=== PATIENT | female | born 1995 | race Caucasian/White ===

== ENCOUNTER 2022-09-19 19:01 | Emergency (ER) | payer SELFPAY ==
--- NOTE | ~2022-09-19 | US_ITS ---
EXAMINATION: US OB <=14 wk fetus w TV INDICATION: left flank pain, left sided pelvic pain TECHNIQUE: Sonography of the pelvis was performed by transabdominal and transvaginal techniques. COMPARISON: None. RESULT: Uterus: Orientation: Anteverted. 8.8 x 6.1 x 4.1 cm. Myometrium: homogeneous echogenicity. Gestation: - Intrauterine gestational sac: Not seen. - Mean Sac Diameter: 0.79 cm, corresponding gestational age 5 week 4 days. - Yolk sac: Present, 0.23 cm . - Embryo: Not seen. -Subgestational hematoma: Absent . Right ovary: 2.8 x 2.0 x 3.0 cm. Normal sonographic appearance with physiologic follicles. . . Left ovary: 3.5 x 2.1 x 3.1 cm. Normal sonographic appearance with physiologic follicles. . . Pelvis free fluid: None. IMPRESSION: Intrauterine of uncertain viability, without identification of a pole. Consider beena nued clinical and sonographic follow-up. Estimated Gestational Age: 5 weeks, 4 days by crown rump length. KATHI by ultrasound 05/18/2023. Reviewed, dictated and finalized at location K. [employer] IMPRESSION: Intrauterine of uncertain viability, without identification of a feta l pole. Consider continued clinical and sonographic follow-up. Estimated Gestational Age: 5 weeks, 4 days by crown rump length. KATHI by ultras ound 05/18/2023.
[2022-09-19 19:26] VITALS: BP 111/86; PULSE 88; RESP 16; TEMP 37.3; O2SAT 100
[2022-09-19 19:56] LABS: Basophils Absolute Auto 0.1 K/mm3 (0.0-0.1); Basophils Percent Auto 0.5 % (0.2-1.2); Eosinophils Absolute Auto 0.1 K/mm3 (0-0.3); Eosinophils Percent Auto 1.3 % (0-4.4); Hematocrit 42.4 % (37.0-47.0); Hemoglobin 14.3 g/dL (12.0-15.0); Immature Granulocyte Absolute 0.05 K/mm3 (0.00-0.031); Immature Granulocyte Percent A 0.5 % (0-0.5); Lymphocytes Absolute Auto 2.99 K/mm3 (0.9-3.2); Lymphocytes Percent Auto 30.2 % (18.3-44.2); Mean Corpuscular HGB Conc 33.7 g/dl (32-36); Mean Corpuscular Hemoglobin 31.5 pg (26-34); Mean Corpuscular Volume 93.4 fl (80-100); Mean Platelet Volume 9.5 fl (7.4-10.4); Monocytes Absolute Auto 0.7 K/mm3 (0.1-0.6); Monocytes Percent Auto 6.8 % (2.6-8.5); Neutrophils Percent Auto 60.7 % (45.5-73.1); Platelet Count Result 286 k/mm3 (150-375); Red Blood Count 4.54 M/mm3 (4.2-5.4); Red Cell Distribution Width 14.8 % (11.5-14.5); White Blood Count 9.9 K/mm3 (4.5-10.0)
[2022-09-19 20:00] LABS: Appearance Urine Slightly Cloudy (Clear); Bilirubin Urine Negative (Negative); Blood Urine Negative (Negative); Color Urine Yellow (Yellow); Glucose Urine UA Negative (Negative); Ketones Urine Negative (Negative); Leukocyte Esterase Ur Negative LEU/UL (Negative); Nitrate Urine Negative (Negative); Protein Urine Negative (Negative); Specific Grav Ur 1.015 (1.001-1.035); Urobilinogen Urine 0.2 mg/dL (<2.0); pH Urine 6.5 (5.0-9.0)
[2022-09-19 20:02] LABS: Alanine Aminotransferase 16 U/L (6-35); Albumin Level 4.6 g/dL (3.5-5.1); Alkaline Phosphatase 44 U/L (38-126); Anion Gap 15 mmol/L (8-16); Aspartate Amino Transferase 22 U/L (14-36); Bilirubin,Total 0.4 mg/dL (0.2-1.3); Blood Urea Nitrogen 11 mg/dL (7-17); Calcium 8.9 mg/dL (8.4-10.2); Carbon Dioxide 25 mmol/L (22-30); Chloride 99 mmol/L (98-107); Estimated Glomerular Filt Rate > 60; Glucose 92 mg/dL (65-110); Potassium 3.7 mmol/L (3.4-5.0); Sodium 139 mmol/L (137-145)
[2022-09-19 20:13] LABS: RBC Urine 0-2 /hpf (0-2); Squamous Epithelial Cell Urine Many /hpf (Few); WBC Urine 0-3 /hpf
[2022-09-19 20:14] LABS: Add Urine Microscopic? YES
--- NOTE | 2022-09-19 22:03 | ED.PREGNANCY ---
HPI - General Chief complaint: Urogenital-Female Stated complaint: left flank pain-6wks preg Time Seen by Provider: 09/19/22 21:54 Source: patient Mode of arrival: ambulatory Limitations: no limitations History of Present Illness HPI Narrative: This is a 26 year old female that presents to the ER for left flank pain and left sided pelvic pain. Reports it is crampy in nature. Started when she woke up. Ongoing since about 4 this afternoon. Patient is about 6 weeks . She has not had an US yet or seen her OB. 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 Denies fever, dysuria, hematuria or vaginal bleeding. Related Data Allergies Allergy/AdvReac Type Severity Reaction Status Date / Time morphine Allergy Unknown Anaphylaxis Verified 09/19/22 19:30 Review of Systems Review of Systems: CONSTITUTIONAL: Denies fever GASTROINTESTINAL: Reports abdominal pain. Denies nausea, vomiting, or diarrhea. GENITOURINARY: Denies dysuria or hematuria. MUSCULOSKELETAL: Reports back pain All systems reviewed & are unremarkable except as noted in HPI and below PMFSH Past Medical History Medical History (Updated 09/20/22 @ 00:34 by Ellen Salvador PA-C) History of depression Family History Family History (Updated 12/18/18 @ 11:01 by DOCTOR UNKNOWN) Other Family history of malignant neoplasm Social History Social History Smoking status: Former smoker Smoking end date: 11/12/16 Alcohol intake: current Exam Narrative: GENERAL: Well-appearing, well-nourished, and in no acute distress. HEAD: Normocephalic, atraumatic. EYES: EOMI. CHEST: Clear to auscultation. No respiratory distress. No wheezes rales or rhonchi HEART: Regular rate and rhythm. No murmur heard. Normal peripheral pulses. ABDOMEN: Soft, nontender, nondistended, normal active bowel sounds. No CVA tenderness EXTREMITIES: Normal range of motion. No edema. SKIN: Warm, dry, no rash. NEURO: No focal deficits. Alert and oriented x3. PSYCH: Normal mood and affect Course Vital Signs Vital signs: Vital Signs Temperature 99.2 F 09/19/22 19:26 Pulse Rate 88 09/19/22 19: Respiratory Rate 16 09/19/22 19:26 Blood Pressure 111/86 09/19/22 19:26 Pulse Oximetry 100 09/19/22 19:26 Oxygen Delivery Room Air 09/19/22 19:26 Temperature 99.9 F H 09/19/22 22:08 Pulse Rate 99 09/19/22 22:08 Respiratory Rate 16 09/19/22 22:08 Blood Pressure 96/66 L 09/19/22 22:08 Pulse Oximetry 100 09/19/22 22:08 Oxygen Delivery Room Air 09/19/22 19:26 MDM - OB/Uterine Contractions MDM Narrative Medical decision making narrative: Patient presents to the ER for crampy left sided flank pain ongoing tonight. Currently about 6 weeks . She is afebrile and nontoxic appearing. Abdominal exam is benign. Her vitals are stable. CBC and metabolic panel without concerning findings. UA without evidence of infection. She has not had any vaginal bleeding. Her blood type is A +. Quantitative beta HCG is 14,275. OB US shows intrauterine gestational sac, but no pole, correlating with 5 weeks and 4 days. Ovaries are normal. No free fluid in the pelvis. Patient given IV Tylenol with relief. She was updated on case findings. Instructed to have close follow up with her OB. She was given warnings to return to the ER Lab Data Attestation: I reviewed the patient's lab results. Result diagrams: 09/19/22 19:43 09/19/22 19:43 Labs: Lab Results 09/19/22 09/19/22 09/19/22 Range/Units 19:43 19:43 19:43 WBC 9.9 (4.5-10.0) K/mm3 RBC 4.54 (4.2-5.4) M/mm3 Hgb 14.3 (12.0-15.0) g/dL Hct 42.4 (37.0-47.0) % MCV 93.4 (80-100) fl MCH 31.5 (26-34) pg MCHC 33.7 (32-36) g/dl RDW 14.8 H (11.5-14.5) % Plt Count 286 (150-375) k/mm3 MPV 9.5 (7.4-10.4) fl Immature Gran % (Auto) 0.5 (0-0.5) % Neut % (Auto) 60.7 (45.5-73.1) % Lymph % (Auto) 30.2 (18.3-44.2) % [place] % (Auto) 6.8
[2022-09-19 22:08] VITALS: BP 96/66; PULSE 99; RESP 16; TEMP 37.7; O2SAT 100
[2022-09-20 00:42] VITALS: BP 113/72; PULSE 78; RESP 18; O2SAT 98
[2022-09-20 00:52] VITALS: BP 113/78; PULSE 78; RESP 18; O2SAT 98
== END 2022-09-20 00:54 | disposition home or self-care (01) ==
PROVIDERS: Emergency Provider Emergency Medicine; PCP Family Medicine Sports Medicine
DX: R10.9 Unspecified abdominal pain (principal); O26.891 Other specified pregnancy related conditions, first trimester; Z3A.01 Less than 8 weeks gestation of pregnancy
CPT/HCPCS: 36415; 76801; 76817; 80053; 81001; 81025; 84702; 85025; 85461; 86850; 86900; 86901; 96374; 99284; J0131

== ENCOUNTER 2022-09-22 14:29 | Outpatient (CLI) | payer SELFPAY | END 2022-09-22 14:30 | disposition home or self-care (01) | PROVIDERS: PCP Family Medicine Sports Medicine; Visit Provider Physician Assistant | DX: O26.899 Other specified pregnancy related conditions, unspecified trimester (principal) | CPT/HCPCS: 36415; 84702 ==

== ENCOUNTER 2022-09-26 14:48 | Outpatient (CLI) | payer SELFPAY ==
--- NOTE | ~2022-09-26 | US_ITS ---
EXAMINATION: US OB <=14 wk fetus w TV DATE: 09/26/2022 15:53 INDICATION: First trimester with an conclusive viability TECHNIQUE: Real-time pelvic transabdominal and transvaginal ultrasound was performed. COMPARISON: 09/19/2022 FINDINGS: The uterus measures 9.7 x 4.5 x 6.2 cm. There is an intrauterine gestational sac. A yolk s ac is identified. heart motion is identified measuring 105 beats per minute (bpm) by M-mode Dop pler. The crown rump length measures 5 mm, which correlates with an estimated gestational age o f 6 weeks and 1 day(s) (+/-) 4 day(s). The right ovary measures 3.0 x 1.6 x 1.2 cm. The left ovary measures 3.3 x 2.1 x 1.9 cm. There is nor mal vascular flow in the ovaries. There is no free fluid in the pelvis. IMPRESSION: 1. Live intrauterine with an estimated gestational age of 6 weeks and 1 day(s) (+/-) 4 day( s) and an estimated delivery date of 05/21/2023. Reviewed, dictated and finalized at location F. EM CUTTER IMPRESSION: 1. Live intrauterine with an estimated gestational age of 6 weeks and 1 day(s) (+/-) 4 day(s) and an estimated delivery date of 05/21/2023.
== END 2022-09-26 14:49 | disposition home or self-care (01) ==
PROVIDERS: PCP Family Medicine Sports Medicine; Visit Provider Obstetrics & Gynecology
DX: O36.80X0 Pregnancy with inconclusive fetal viability, not applicable or unspecified (principal); Z3A.01 Less than 8 weeks gestation of pregnancy
CPT/HCPCS: 76801; 76817

== ENCOUNTER 2022-11-29 12:34 | Emergency (ER) | payer OTHER, SELFPAY ==
--- NOTE | ~2022-11-29 | US_ITS ---
EXAMINATION: US venous doppler [facility] DATE: 11/29/2022 16:01 INDICATION: Lower limb pain and swelling. TECHNIQUE: Grayscale ultrasound images without and with compression and Doppler ultrasound images of the bilateral lower extremity veins were obtained. COMPARISON: None. FINDINGS: The visualized portions of right common femoral vein, profunda (deep) femoral vein, femoral vein, pop liteal vein, peroneal veins, posterior tibial veins, and greater saphenous vein outflow are patent. The visualized portions of left common femoral vein, profunda femoral vein, femoral vein, popliteal v ein, peroneal veins, posterior tibial veins, and greater saphenous vein outflow are patent. IMPRESSION: 1. No deep venous thrombosis. Reviewed, dictated and finalized at location A. [employer] AGENT
[2022-11-29 12:37] VITALS: BP 126/74; PULSE 111; RESP 16; TEMP 37.2; O2SAT 96
--- NOTE | 2022-11-29 14:21 | ED.GENADULT ---
HPI - General Adult General Chief complaint: Unspecified Stated complaint: pain and bruising in legs-16 weeks Time Seen by Provider: 11/29/22 14:07 Source: patient Mode of arrival: other Limitations: no limitations History of Present Illness HPI narrative: Rula Issa is a 27 y/o 16 weeks who reports she is having swelling to her ankles/feet and pain to her legs and feet and it is making it hard for her to walk. She denies any trauma or injury. She reports calling her OBGYN today with this complaint and was encouarged to come to ED for evaluation. Denies nausea/vomiting/chest pain/shortness of breath/fever/chills. Related Data Home Medications Medication Instructions Recorded Confirmed albuterol sulfate 90 mcg/actuation 1 puff inhalation Q4H PRN 09/26/22 10/27/22 aerosol inhaler Shortness Of Breath Or Wheezing duloxetine 60 mg capsule,delayed 60 mg PO DAILY 09/26/22 10/27/22 release (Cymbalta) prenat.vits,enrico,[id number] 1 tablet PO DAILY 09/26/22 10/27/22 Allergies Allergy/AdvReac Type Severity Reaction Status Date / Time morphine Allergy Unknown Anaphylaxis Verified 11/29/22 14:00 Review of Systems Review of Systems: CONSTITUTIONAL: Denies fever, chills, or sweats. EYES: Denies visual changes, redness, or discharge. ENT: Denies rhinorrhea, congestion, sore throat, or otalgia. CARDIOVASCULAR: Denies chest pain, palpitations, or edema. RESPIRATORY: Denies cough or dyspnea. GASTROINTESTINAL: Denies abdominal pain, nausea, vomiting, or diarrhea. GENITOURINARY: Denies dysuria or hematuria. SKIN: Denies rash or itching. MUSCULOSKELETAL: Reports pain to lower extremities/feet and swelling to ankles NEUROLOGIC: Denies headache, numbness, dizziness, or weakness. PSYCHIATRIC: Denies anxiety or depression. [facility] Past Medical History Medical History Anxiety Asthma History of depression Surgical History Surgical History History of cholecystectomy S/P knee surgery Family History Family History Other Alcoholism Asthma Depression Family history of malignant neoplasm Heart disease Hypertension Lung cancer Thyroid disorder Social History Social History Smoking status: Former smoker Tobacco type: e-cigarettes/vaping Alcohol intake: current Substance use: never Substance use type: does not use Exam Narrative: GENERAL: Well-appearing, well-nourished, and in no acute distress. HEAD: Normocephalic, atraumatic. EYES: PERRLA and EOMI. ENT: Nares clear, no rhinorrhea or epistaxis. Mucous membranes moist. Oropharynx without tonsillar hypertrophy exudate or other lesions. NECK: Supple. No adenopathy or masses. No carotid bruits or JVD CHEST: Clear to auscultation. No respiratory distress. No wheezes rales or rhonchi HEART: Regular rate and rhythm. No murmur heard. Normal peripheral pulses. ABDOMEN: Soft, nontender, nondistended, normal active bowel sounds. EXTREMITIES: Normal range of motion. No edema. Slight swelling to ankles SKIN: Warm, dry, no rash. NEURO: No focal deficits. Alert and oriented x3. PSYCH: Normal mood and affect. Course Vital Signs Vital signs: Vital Signs Temperature 37.2 C 11/29/22 12:37 Pulse Rate 111 H 11/29/22 12:37 Respiratory Rate 16 11/29/22 12:37 Blood Pressure 126/74 11/29/22 12:37 Pulse Oximetry 96 11/29/22 12:37 Oxygen Delivery Room Air 11/29/22 12:37 Temperature 37.2 C 11/29/22 12:37 Pulse Rate 111 H 11/29/22 12:37 Respiratory Rate 16 11/29/22 12:37 Blood Pressure 126/74 11/29/22 12:37 Pulse Oximetry 96 11/29/22 12:37 Oxygen Delivery Room Air 11/29/22 12:37 Medical Decision Making MDM Narrative Medical decision making narrative: Patient reports she is about 16 wee
[2022-11-29 14:39] LABS: Basophils Percent Auto 0.4 % (0.2-1.2); Eosinophils Absolute Auto 0.1 K/mm3 (0-0.3); Eosinophils Percent Auto 1.2 % (0-4.4); Hematocrit 34.9 % (37.0-47.0); Hemoglobin 11.8 g/dL (12.0-15.0); Immature Granulocyte Absolute 0.07 K/mm3 (0.00-0.031); Immature Granulocyte Percent A 0.8 % (0-0.5); Lymphocytes Absolute Auto 1.69 K/mm3 (0.9-3.2); Lymphocytes Percent Auto 20.3 % (18.3-44.2); Mean Corpuscular HGB Conc 33.8 g/dl (32-36); Mean Corpuscular Hemoglobin 31.9 pg (26-34); Mean Corpuscular Volume 94.3 fl (80-100); Mean Platelet Volume 9.6 fl (7.4-10.4); Monocytes Absolute Auto 0.5 K/mm3 (0.1-0.6); Monocytes Percent Auto 5.5 % (2.6-8.5); Neutrophils Percent Auto 71.8 % (45.5-73.1); Platelet Count Result 250 k/mm3 (150-375); Red Cell Distribution Width 13.4 % (11.5-14.5); White Blood Count 8.3 K/mm3 (4.5-10.0)
[2022-11-29] MEDS: ACETAMINOPHEN 325 MG TABLET 650 MG PO (14:42)
[2022-11-29 14:45] LABS: Alanine Aminotransferase 17 U/L (6-35); Albumin Level 3.9 g/dL (3.5-5.1); Alkaline Phosphatase 54 U/L (38-126); Anion Gap 6 mmol/L (8-16); Aspartate Amino Transferase 21 U/L (14-36); Bilirubin,Total 0.2 mg/dL (0.2-1.3); Blood Urea Nitrogen 7 mg/dL (7-17); Calcium 8.6 mg/dL (8.4-10.2); Carbon Dioxide 26 mmol/L (22-30); Chloride 103 mmol/L (98-107); Estimated Glomerular Filt Rate > 60; Glucose 112 mg/dL (65-110); Potassium 4.2 mmol/L (3.4-5.0); Sodium 135 mmol/L (137-145)
--- NOTE | 2022-11-29 15:59 | PC.NURSE ---
return from ultrasound
== END 2022-11-29 17:30 | disposition home or self-care (01) ==
PROVIDERS: Emergency Provider Nurse Practitioner Family; PCP Family Medicine Sports Medicine
DX: O26.892 Other specified pregnancy related conditions, second trimester (principal); M79.89 Other specified soft tissue disorders; Z87.891 Personal history of nicotine dependence; Z3A.16 16 weeks gestation of pregnancy
CPT/HCPCS: 36415; 80053; 85025; 93970; 99284; A9270

== ENCOUNTER 2022-12-25 07:10 | Outpatient (CLI) | payer OTHER, SELFPAY ==
[2022-12-25 07:42] LABS: Basophils Percent Auto 0.3 % (0.2-1.2); Eosinophils Absolute Auto 0.1 K/mm3 (0-0.3); Hematocrit 30.3 % (37.0-47.0); Immature Granulocyte Absolute 0.11 K/mm3 (0.00-0.031); Immature Granulocyte Percent A 1.1 % (0-0.5); Lymphocytes Absolute Auto 1.95 K/mm3 (0.9-3.2); Mean Corpuscular Hemoglobin 31.3 pg (26-34); Mean Corpuscular Volume 94.7 fl (80-100); Monocytes Absolute Auto 0.8 K/mm3 (0.1-0.6); Monocytes Percent Auto 7.4 % (2.6-8.5); Neutrophils Absolute Auto 7.3 K/mm3 (1.3-6.7); Neutrophils Percent Auto 71.2 % (45.5-73.1); Platelet Count Result 247 k/mm3 (150-375); Red Cell Distribution Width 13.4 % (11.5-14.5); White Blood Count 10.3 K/mm3 (4.5-10.0)
[2022-12-25 07:46] LABS: Appearance Urine Clear (Clear); Bilirubin Urine Negative (Negative); Blood Urine Negative (Negative); Color Urine Yellow (Yellow); Glucose Urine UA Negative (Negative); Ketones Urine Negative (Negative); Leukocyte Esterase Ur Negative LEU/UL (NEGATIVE); Nitrate Urine Negative (Negative); Protein Urine Trace mg/dL (Negative); Specific Grav Ur 1.025 (1.001-1.035); Urobilinogen Urine 0.2 mg/dL (<2.0); pH Urine 6.5 (5.0-9.0)
[2022-12-25 07:59] LABS: Bacteria Urine Trace /hpf; Mucus Urine Rare /lpf; RBC Urine 0-2 /hpf (0-2); Squamous Epithelial Cell Urine Many /hpf (Few); WBC Urine 0-3 /hpf (0-3)
[2022-12-25 08:01] LABS: Add Urine Microscopic? YES
[2022-12-25 08:27] LABS: Vitamin D 25 Hydroxy 15.9 ng/mL
[2022-12-25 08:42] LABS: HIV 1/2 Ab P24 Ag Result Negative (Negative); Hepatitis B Surface Antigen Negative (Negative); Rubella IgG Antibody 3.3 IU/ML
[2022-12-25 08:59] LABS: Hepatitis C Virus Antibody Negative (Negative)
[2022-12-25 16:44] LABS: Rapid Plasma Reagin Non-Reactive (NonReactive)
== END 2022-12-25 07:11 | disposition home or self-care (01) ==
LOC: ANHLAB 07:12
PROVIDERS: PCP Family Medicine Sports Medicine; Visit Provider Obstetrics & Gynecology
DX: Z34.90 Encounter for supervision of normal pregnancy, unspecified, unspecified trimester (principal); Z3A.00 Weeks of gestation of pregnancy not specified
CPT/HCPCS: 36415; 81001; 82306; 83021; 84443; 85025; 86592; 86703; 86762; 86787; 86803; 86850; 86900; 86901; 87086; 87340; G0432

== ENCOUNTER 2023-01-05 10:41 | Outpatient (CLI) | payer OTHER, SELFPAY ==
--- NOTE | ~2023-01-05 | US_ITS ---
EXAMINATION: US OB /maternal detail DATE: 01/05/2023 12:02 INDICATION: Encounter for other specified screening. TECHNIQUE: Real-time ultrasound of the pelvis was performed. COMPARISON: Ultrasound 09/26/2022, 09/19/2022 FINDINGS: There is a single living fetus in variable presentation. The placenta is posterior. heart rate is 150 beats per minute (bpm). The amniotic fluid volume is subjectively normal. The following biometric data were obtained: Biparietal diameter (BPD): 4.6 cm; head circumference (HC): 17.7 cm; abdominal circumference (AC): 16 .1 cm; femur length (FL): 3.2 cm. These measurements are concordant. Estimated weight is 361 g +/- 54 g, which correlates with the 14th percentile when 05/16/23 is us ed as estimated date of delivery. As single measurements, these parameters are each equal to the following estimated gestational ages: BPD: 20 weeks 0 days. HC: 20 weeks 1 days. AC: 21 weeks 1 days. FL: 20 weeks 0 days. estimated gestational age based solely on measurements from this exam is 20 weeks 2 days +/- 1 weeks 3 days. The cerebral ventricles, cerebellum, cisterna magna, nuchal fold, and visualized portions of the spin e are normal. The heart is normal. The diaphragm, stomach, kidneys, and bladder are normal. There are two umbilical arteries to yield a 3-vessel cord. The cord insertion is normal. IMPRESSION: 1. Single living fetus in variable presentation. 2. Estimated weight is 361 g +/- 54 g, which correlates with the 14th percentile when 05/16/23 i s used as estimated date of delivery. Note that estimated date of delivery based on the ultrasound fr om 09/26/2022 would be 05/21/2023. 3. Normal anatomic survey. Reviewed, dictated and finalized at location A. CUTTER IMPRESSION: 1. Single living fetus in variable presentation. 2. Estimated weight is 361 g +/- 54 g, which correlates with the 14th pe rcentile when 05/16/23 is used as estimated date of delivery. Note that estimated date of delivery based on the ultrasound from 09/26/2022 would be 05/21/2023. 3. Normal anatomic survey.
== END 2023-01-05 10:42 | disposition home or self-care (01) ==
LOC: ANHIMG 10:45
PROVIDERS: PCP Family Medicine Sports Medicine; Visit Provider Obstetrics & Gynecology
DX: Z36.89 Encounter for other specified antenatal screening (principal); Z3A.20 20 weeks gestation of pregnancy
CPT/HCPCS: 76805

== ENCOUNTER 2023-02-21 13:22 | Outpatient (CLI) | payer OTHER, SELFPAY ==
[2023-02-21 15:08] LABS: Basophils Percent Auto 0.3 % (0.2-1.2); Eosinophils Absolute Auto 0.1 K/mm3 (0-0.3); Eosinophils Percent Auto 0.7 % (0-4.4); Hematocrit 31.5 % (37.0-47.0); Hemoglobin 10.5 g/dL (12.0-15.0); Immature Granulocyte Absolute 0.13 K/mm3 (0.00-0.031); Immature Granulocyte Percent A 1.2 % (0-0.5); Lymphocytes Percent Auto 13.9 % (18.3-44.2); Mean Corpuscular HGB Conc 33.3 g/dl (32-36); Mean Corpuscular Hemoglobin 31.3 pg (26-34); Mean Platelet Volume 10.6 fl (7.4-10.4); Monocytes Absolute Auto 0.7 K/mm3 (0.1-0.6); Monocytes Percent Auto 6.6 % (2.6-8.5); Neutrophils Absolute Auto 8.3 K/mm3 (1.3-6.7); Neutrophils Percent Auto 77.3 % (45.5-73.1); Platelet Count Result 199 k/mm3 (150-375); Red Blood Count 3.35 M/mm3 (4.2-5.4); Red Cell Distribution Width 13.4 % (11.5-14.5); White Blood Count 10.8 K/mm3 (4.5-10.0)
[2023-02-21 15:25] LABS: Glucose 1 Hour PP 50gm Dose 93 mg/dL
== END 2023-02-21 13:23 | disposition home or self-care (01) ==
PROVIDERS: PCP Family Medicine Sports Medicine; Visit Provider Obstetrics & Gynecology
DX: Z34.90 Encounter for supervision of normal pregnancy, unspecified, unspecified trimester (principal)
CPT/HCPCS: 36415; 82947; 85025

== ENCOUNTER 2023-03-15 12:31 | Outpatient (CLI) | payer OTHER, SELFPAY ==
--- NOTE | ~2023-03-15 | US_ITS ---
EXAMINATION: US OB follow up DATE: 03/15/2023 13:30 INDICATION: Encounter for screening during third trimester TECHNIQUE: Real-time ultrasound of the pelvis was performed. The interpreting radiologist was not pre sent for the study. COMPARISON: 01/05/2023 FINDINGS: There is a single living fetus in vertex presentation. The placenta is posterior fundal. heart rate is 134 beats per minute (bpm). The amniotic fluid index is 13.8 cm, which is normal (5th%-95%: 9.0-23.4 cm at 30 weeks estimated gestational age). The following biometric data were obtained: BPD: 7.6 cm -> 30 weeks 3 days Head circumference: 27.9 cm -> 30 weeks 4 days Abdominal circumference: 26.7 cm -> 30 weeks 6 days Femur length: 5.8 cm -> 30 weeks 3 days These measurements are concordant. Head circumference to abdominal circumference ratio: 1.04 (normal range 0.97-1.18). Estimated weight: 1613 g (+/-) 242 g or 3 lbs. 9 oz. (+/-) 9 oz. IMPRESSION: 1. Single living fetus in vertex presentation with heart rate of 134 bpm. 2. Normal amniotic fluid index of 13.8 cm. 3. Estimated weight is 45th percentile by Hadlock criteria when 05/21/2023 is used as the estima aureliano date of delivery (KATHI). Please correlate with clinical information or earlier ultrasounds for mos t accurate KATHI. Reviewed, dictated and finalized at location L. IMPRESSION: 1. Single living fetus in vertex presentation with heart rate of 134 bpm. 2. Normal amniotic fluid index of 13.8 cm. 3. Estimated weight is 45th percentile by Hadlock criteria when 05/21/2023 is used as the estimated date of delivery (KATHI). Please correlate with clinica l information or earlier ultrasounds for most accurate KATHI.
== END 2023-03-15 12:32 | disposition home or self-care (01) ==
PROVIDERS: PCP Family Medicine Sports Medicine; Visit Provider Registered Nurse
DX: Z36.2 Encounter for other antenatal screening follow-up (principal); Z3A.00 Weeks of gestation of pregnancy not specified
CPT/HCPCS: 76816

== ENCOUNTER 2023-04-05 09:31 | Outpatient (CLI) | payer OTHER, SELFPAY ==
[2023-04-05 10:13] LABS: Basophils Percent Auto 0.4 % (0.2-1.2); Eosinophils Absolute Auto 0.1 K/mm3 (0-0.3); Eosinophils Percent Auto 0.6 % (0-4.4); Hematocrit 33.1 % (37.0-47.0); Hemoglobin 10.8 g/dL (12.0-15.0); Immature Granulocyte Percent A 1.9 % (0-0.5); Lymphocytes Absolute Auto 1.53 K/mm3 (0.9-3.2); Lymphocytes Percent Auto 14.3 % (18.3-44.2); Mean Corpuscular HGB Conc 32.6 g/dl (32-36); Mean Corpuscular Hemoglobin 30.1 pg (26-34); Mean Corpuscular Volume 92.2 fl (80-100); Mean Platelet Volume 11.3 fl (7.4-10.4); Monocytes Absolute Auto 0.9 K/mm3 (0.1-0.6); Monocytes Percent Auto 8.2 % (2.6-8.5); Neutrophils Percent Auto 74.6 % (45.5-73.1); Platelet Count Result 211 k/mm3 (150-375); Red Blood Count 3.59 M/mm3 (4.2-5.4); Red Cell Distribution Width 14.6 % (11.5-14.5); White Blood Count 10.7 K/mm3 (4.5-10.0)
[2023-04-05 11:09] LABS: HIV 1/2 Ab P24 Ag Result Negative (Negative)
[2023-04-06 09:01] LABS: Rapid Plasma Reagin Non-Reactive (NonReactive)
== END 2023-04-05 09:32 | disposition home or self-care (01) ==
PROVIDERS: PCP Family Medicine Sports Medicine; Visit Provider Registered Nurse
DX: Z34.90 Encounter for supervision of normal pregnancy, unspecified, unspecified trimester (principal)
CPT/HCPCS: 36415; 85025; 86592; 86703; G0432

== ENCOUNTER 2023-04-13 07:24 | Outpatient (CLI) | payer OTHER, SELFPAY ==
[2023-04-13] VITALS (7 sets, daily range): BP systolic 112–124; BP diastolic 73–81; PULSE 80–119
[2023-04-13 08:31] LABS: Basophils Percent Auto 0.3 % (0.2-1.2); Eosinophils Percent Auto 0.5 % (0-4.4); Hematocrit 31.1 % (37.0-47.0); Hemoglobin 10.3 g/dL (12.0-15.0); Immature Granulocyte Absolute 0.11 K/mm3 (0.00-0.031); Immature Granulocyte Percent A 1.3 % (0-0.5); Lymphocytes Absolute Auto 1.49 K/mm3 (0.9-3.2); Lymphocytes Percent Auto 17.2 % (18.3-44.2); Mean Corpuscular HGB Conc 33.1 g/dl (32-36); Mean Corpuscular Hemoglobin 30.4 pg (26-34); Mean Corpuscular Volume 91.7 fl (80-100); Mean Platelet Volume 11.5 fl (7.4-10.4); Monocytes Absolute Auto 0.7 K/mm3 (0.1-0.6); Monocytes Percent Auto 8.6 % (2.6-8.5); Neutrophils Absolute Auto 6.2 K/mm3 (1.3-6.7); Neutrophils Percent Auto 72.1 % (45.5-73.1); Platelet Count Result 207 k/mm3 (150-375); Red Blood Count 3.39 M/mm3 (4.2-5.4); Red Cell Distribution Width 14.6 % (11.5-14.5); White Blood Count 8.7 K/mm3 (4.5-10.0)
[2023-04-13 08:46] LABS: Alanine Aminotransferase 21 U/L (6-35); Albumin Level 3.5 g/dL (3.5-5.1); Alkaline Phosphatase 146 U/L (38-126); Anion Gap 6 mmol/L (8-16); Aspartate Amino Transferase 26 U/L (14-36); Bilirubin,Total 0.3 mg/dL (0.2-1.3); Blood Urea Nitrogen 7 mg/dL (7-17); Calcium 8.3 mg/dL (8.4-10.2); Carbon Dioxide 24 mmol/L (22-30); Chloride 105 mmol/L (98-107); Estimated Glomerular Filt Rate > 60; Glucose 88 mg/dL (65-110); Potassium 4.2 mmol/L (3.4-5.0); Sodium 135 mmol/L (137-145); Uric Acid 3.1 mg/dL (2.5-7.5)
[2023-04-13 09:58] LABS: Total Protein Urine Random 16 mg/dL
[2023-04-13 10:43] LABS: Appearance Urine Turbid (Clear); Bacteria Urine 4+ /hpf; Bilirubin Urine Negative (Negative); Blood Urine Negative (Negative); Glucose Urine UA Negative (Negative); Ketones Urine Negative (Negative); Leukocyte Esterase Ur Negative LEU/UL (NEGATIVE); Need Manual Microscopic Reviewed; Nitrate Urine Negative (Negative); Non Pathogenic Casts 0-2; Protein Urine 1+ mg/dL (Negative); RBC Urine 0-2 /hpf (0-2); Specific Grav Ur 1.027 (1.001-1.035); Squamous Epithelial Cell Urine Many /hpf (Few); WBC Urine 51-100 /hpf (0-3); pH Urine 6.5 (5.0-9.0)
[2023-04-13 10:49] LABS: Color Urine Yellow (Yellow)
[2023-04-13 10:50] LABS: Add Urine Microscopic? YES
--- NOTE | 2023-04-13 11:06 | PC.NURSE ---
Addendum entered by Della Lui RN 04/13/23 11:07: 1010 Original Note: Dr Huitron notified of patient c/o, BP and lab results. Ok to dc home with 24 hour urine.
== END 2023-04-13 10:21 | disposition home or self-care (01) ==
LOC: ANHOBOP 07:28 → ANHOBPP 07:31
PROVIDERS: PCP Family Medicine Sports Medicine; Visit Provider Obstetrics & Gynecology
DX: R42 Dizziness and giddiness (principal); O13.9 Gestational [pregnancy-induced] hypertension without significant proteinuria, unspecified trimester; Z3A.00 Weeks of gestation of pregnancy not specified
CPT/HCPCS: 36415; 59025; 80053; 81001; 82570; 84156; 84550; 85025; 87086; 99199

== ENCOUNTER 2023-04-14 12:59 | Outpatient (NON) | payer OTHER, SELFPAY ==
[2023-04-14 12:58] VITALS: BMI 30.1
[2023-04-14 13:19] LABS: Collection Time Urine 24 HOURS
[2023-04-14 13:29] LABS: Total Volume 24 Hour Urine 1300 ml
[2023-04-14 13:30] LABS: Total Protein Urine Random 12 mg/dL
[2023-04-14 13:30] LABS: Patient Weight 149 Lbs
[2023-04-14 13:35] LABS: Total Protein Urine 24 Hr 156 mg/24hr (28-141); Total Volume 24 Hour Urine 1300 ml
[2023-04-14 13:50] LABS: Creatinine Clearance Urine 275.8 ml/min (75-125); Creatinine Urine 143.2 mg/dL
== END 2023-04-14 13:00 | disposition home or self-care (01) ==
LOC: ANHOBOP 13:00
PROVIDERS: Obstetrics & Gynecology Gynecology; PCP Family Medicine Sports Medicine; Visit Provider Obstetrics & Gynecology
DX: Z34.90 Encounter for supervision of normal pregnancy, unspecified, unspecified trimester (principal); Z3A.00 Weeks of gestation of pregnancy not specified
CPT/HCPCS: 81050; 82575; 84156

== ENCOUNTER 2023-04-17 10:12 | Observation (INO) | payer OTHER, SELFPAY ==
--- NOTE | ~2023-04-17 | US_ITS ---
EXAMINATION: US OB limited DATE: 04/17/2023 12:37 INDICATION: Abdominal pain. Third trimester. TECHNIQUE: Real-time ultrasound of the pelvis was performed. COMPARISON: None. FINDINGS: There is a single fetus in vertex presentation. The placenta is fundal. heart rate is 153 beat s per minute (bpm). The amniotic fluid volume is subjectively normal. The deepest vertical pocket is 6.8 cm. IMPRESSION: 1. Single living fetus in vertex presentation. Reviewed, dictated and finalized at location A.
--- NOTE | ~2023-04-17 | US_ITS ---
Limited Abdominal Sonogram: Real-time sonographic imaging of the right upper quadrant was performed. Clinical History: Abdominal pain Findings: The liver appears normal with no evidence of mass lesion or bile duct dilatation. Main por mohan vein demonstrates normal direction of flow. The gallbladder is not visualized. The common bile du ct measures 5 mm. The pancreas, aorta, and IVC are obscured by bowel gas shadowing. Gravid uterus noted. Appendix not visualized the right lower quadrant. Impression: Gravid uterus noted. Gallbladder it is not seen. Correlate for prior cholecystectomy. Pancreas, aorta, and IVC are obscure d by bowel gas shadowing.. Appendix not visualized in the right lower quadrant. Reviewed, dictated and finalized at location . Impression: Gravid uterus noted. Gallbladder it is not seen. Correlate for prior cholecystectomy. Pancreas, aort a, and IVC are obscured by bowel gas shadowing.. Appendix not visualized in the right lower quadrant.
--- NOTE | 2023-04-17 10:12 | OBADM ---
This patient, Rula Issa, admitted to the OB room OB Post 113 for observation. Patient/family oriented to hospital policies and general routines including ID bracelet, bed and alarms, visiting hours, pain management, procedures, bathroom and other care routines, personal items, smoking policy, room service/diet, and visiting hours. Patient/Family are encouraged to report perceived risks to care and to ask questions if they do not understand what they are told or what they should do.
[2023-04-17 10:41] VITALS: BP 119/75; PULSE 79
[2023-04-17] MEDS: NIFEdipine 10 MG CAPSULE PO ×2 (11:45→13:36)
[2023-04-17 11:57] VITALS: BMI 30.9
[2023-04-17 12:03] LABS: Appearance Urine Cloudy (Clear); Bacteria Urine 1+ /hpf; Bilirubin Urine Negative (Negative); Blood Urine Negative (Negative); Color Urine Yellow (Yellow); Glucose Urine UA Negative (Negative); Ketones Urine Negative (Negative); Leukocyte Esterase Ur 1+ LEU/UL (NEGATIVE); Nitrate Urine Negative (Negative); Non Pathogenic Casts 0-2; Protein Urine Trace mg/dL (Negative); RBC Urine 0-2 /hpf (0-2); Specific Grav Ur 1.021 (1.001-1.035); Squamous Epithelial Cell Urine Many /hpf (Few); Urobilinogen Urine 0.2 mg/dL (<2.0)
[2023-04-17 12:09] LABS: Add Urine Microscopic? YES
[2023-04-17 13:20] VITALS: TEMP 36.7
--- NOTE | 2023-05-11 09:53 | P.PNOB_ITS ---
OB - Triage/Final Diagnosis Visit Information Comments/Additional reasons for admission: I have assessed the risk for this patient, Rula Issa, and determined that she would benefit from observation care. Evaluation Laboratory results: Laboratory Tests 04/17/23 11:47 Urine Color Yellow Urine Appearance Cloudy H Urine pH 6.0 Ur Specific [place] 1.021 Urine Protein Trace Urine Glucose (UA) Negative Urine Ketones Negative Ur Blood (Man) Negative Urine Nitrate Negative Urine Bilirubin Negative Urine Urobilinogen 0.2 Ur Leukocyte Esterase 1+ H Urine RBC 0-2 Urine WBC 11-20 H Ur Squamous Epith Cells Many H Urine Bacteria 1+ H Urine Casts 0-2 Final Diagnosis (1) Threatened labor: Code(s): O47.9 - False labor, unspecified Status: Acute
== END 2023-04-17 15:10 | disposition home or self-care (01) ==
PROVIDERS: Admitting Provider Obstetrics & Gynecology; PCP Family Medicine Sports Medicine; Visit Provider Obstetrics & Gynecology
DX: O47.03 False labor before 37 completed weeks of gestation, third trimester (principal); O26.893 Other specified pregnancy related conditions, third trimester; R10.9 Unspecified abdominal pain; Z3A.35 35 weeks gestation of pregnancy
CPT/HCPCS: 76705; 76815; 81001; 87086; A9270; G0378; G0379

== ENCOUNTER 2023-04-26 23:32 | Observation (INO) | payer OTHER, SELFPAY ==
[2023-04-26 23:45] VITALS: BP 123/72; PULSE 85
[2023-04-27] VITALS (8 sets, daily range): BP systolic 111–130; BP diastolic 73–89; PULSE 73–104
--- NOTE | 2023-04-27 | OBADM ---
This patient, Rula Issa, admitted to the OB room Labor/Delivery/Recovery 105 for observation. Patient/family oriented to hospital policies and general routines including ID bracelet, bed and alarms, visiting hours, pain management, procedures, bathroom and other care routines, personal items, smoking policy, room service/diet, and visiting hours. Patient/Family are encouraged to report perceived risks to care and to ask questions if they do not understand what they are told or what they should do.
--- NOTE | 2023-04-30 17:18 | PM.OBTRLD ---
OB - Triage/Final Diagnosis Visit Information Date of evaluation: 04/27/23 Reason for evaluation: threatened labor Comments/Additional reasons for admission: I have assessed the risk for this patient, Rula Issa, and determined that she would benefit from observation care.
== END 2023-04-27 02:20 | disposition home or self-care (01) ==
PROVIDERS: Admitting Provider Student in an Organized Health Care Education/Training Program; PCP Family Medicine Sports Medicine; Visit Provider Student in an Organized Health Care Education/Training Program
DX: O47.1 False labor at or after 37 completed weeks of gestation (principal); Z3A.37 37 weeks gestation of pregnancy
CPT/HCPCS: G0378; G0379

== ENCOUNTER 2023-05-01 09:03 | Outpatient (CLI) | payer OTHER, SELFPAY ==
[2023-05-01 09:42] VITALS: BP 115/81; PULSE 81
== END 2023-05-01 09:48 | disposition home or self-care (01) ==
LOC: ANHOBOP 09:40 → ANHLDR 09:44
PROVIDERS: PCP Family Medicine Sports Medicine; Visit Provider Obstetrics & Gynecology
DX: O42.90 Premature rupture of membranes, unspecified as to length of time between rupture and onset of labor, unspecified weeks of gestation (principal); Z3A.00 Weeks of gestation of pregnancy not specified
CPT/HCPCS: 59025; 84112; 99199

== ENCOUNTER 2023-05-06 08:58 | Observation (INO) | payer OTHER, SELFPAY ==
[2023-05-06] VITALS (10 sets, daily range): BP systolic 115–148; BP diastolic 65–95; PULSE 89–118; BMI 32.0
--- NOTE | 2023-05-06 11:32 | OBADM ---
This patient, Rula Issa, admitted to the OB room Labor/Delivery/Recovery 106 for observation. Patient/family oriented to hospital policies and general routines including ID bracelet, bed and alarms, visiting hours, pain management, procedures, bathroom and other care routines, personal items, smoking policy, room service/diet, and visiting hours. Patient/Family are encouraged to report perceived risks to care and to ask questions if they do not understand what they are told or what they should do.
--- NOTE | 2023-05-06 11:49 | PC.NURSE ---
1149: Patient discharged home with instructions to drink plenty of fluids, do kick counts, and return to the hospital if she is leaking fluid, cele 3-5 min apart with increasing intensity, and or with any other concerns.
--- NOTE | 2023-05-10 07:31 | PM.OBTRLD ---
OB - Triage/Final Diagnosis Visit Information Reason for evaluation: threatened labor Comments/Additional reasons for admission: I have assessed the risk for this patient, Rula Issa, and determined that she would benefit from observation care.
== END 2023-05-06 11:50 | disposition home or self-care (01) ==
PROVIDERS: Admitting Provider Obstetrics & Gynecology; PCP Family Medicine Sports Medicine; Visit Provider Obstetrics & Gynecology
DX: O47.1 False labor at or after 37 completed weeks of gestation (principal); Z3A.38 38 weeks gestation of pregnancy
CPT/HCPCS: 59025; G0378; G0379

== ENCOUNTER 2023-05-08 09:26 | Inpatient (IN) | payer OTHER, SELFPAY ==
[2023-05-08] VITALS (158 sets, daily range): BP systolic 103–152; BP diastolic 54–132; PULSE 62–122; TEMP 36.6–37.5; O2SAT 92–100; BMI 32.7
[2023-05-08 11:14] LABS: Basophils Percent Auto 0.4 % (0.2-1.2); Eosinophils Percent Auto 0.2 % (0-4.4); Hematocrit 32.2 % (37.0-47.0); Hemoglobin 10.3 g/dL (12.0-15.0); Immature Granulocyte Absolute 0.07 K/mm3 (0.00-0.031); Immature Granulocyte Percent A 0.8 % (0-0.5); Lymphocytes Percent Auto 13.2 % (18.3-44.2); Mean Corpuscular Volume 90.7 fl (80-100); Monocytes Absolute Auto 0.5 K/mm3 (0.1-0.6); Monocytes Percent Auto 5.5 % (2.6-8.5); Neutrophils Absolute Auto 6.7 K/mm3 (1.3-6.7); Neutrophils Percent Auto 79.9 % (45.5-73.1); Platelet Count Result 187 k/mm3 (150-375); Red Blood Count 3.55 M/mm3 (4.2-5.4); Red Cell Distribution Width 16.4 % (11.5-14.5); White Blood Count 8.4 K/mm3 (4.5-10.0)
[2023-05-08 11:23] LABS: Alanine Aminotransferase 18 U/L (6-35); Albumin Level 3.6 g/dL (3.5-5.1); Alkaline Phosphatase 213 U/L (38-126); Anion Gap 4 mmol/L (8-16); Aspartate Amino Transferase 28 U/L (14-36); Bilirubin,Total 0.4 mg/dL (0.2-1.3); Blood Urea Nitrogen 11 mg/dL (7-17); Calcium 8.5 mg/dL (8.4-10.2); Carbon Dioxide 25 mmol/L (22-30); Chloride 105 mmol/L (98-107); Estimated Glomerular Filt Rate > 60; Glucose 86 mg/dL (65-110); Sodium 134 mmol/L (137-145)
[2023-05-08 11:26] LABS: Uric Acid 5.4 mg/dL (2.5-7.5)
--- NOTE | 2023-05-08 11:35 | PC.NURSE ---
1117- Introductions were made and mother shared how she would like to feed her baby with . Encouraged mother to place [id number] until the first feeding if is stable and to wait on the weight to help stabilize, reduce stress, and improve latching by allowing infant time to explore parent's chest using instincts. Education was shared on how to protect her milk supply with latching infant and/or using hand expression to remove milk if infant doesn't latch in the first hour, then finger feed colostrum to the to preserve breast focus. Demonstration given on how to hand express using tool. Resources provided with educational trifold for bonding and feeding infant. Patient voiced understanding of information and to call if there is a request for assistance.
--- NOTE | 2023-05-08 11:48 | LDADM ---
This patient, Rula Issa, was admitted to Labor/Delivery/Recovery 106 on 05/08/23 at 09:26. Plans for labor, pain management and were discussed with patient. Patient/family oriented to hospital policies and general routines including ID bracelet, bed and alarms, visiting hours, pain management, procedures, bathroom and other care routines, personal items, smoking policy, room service/diet and guest tray routines, infant security routines, and visiting hours. Patient/Family are encouraged to report perceived risks to care and to ask questions if they do not understand what they are told or what they should do. See OBIX for further documentation.
[2023-05-08] MEDS: LACTATED RINGERS 1,000 ML 125 ML IV CONT ×3 (12:07→22:43)
[2023-05-08] MEDS: OXYTOCIN 30 UNITS/NS 500 ML 30 UNITS/500 ML BAG IV CONT (12:07)
--- NOTE | 2023-05-08 13:03 | PM.IMHP ---
H&P: HPI History of Present Illness Date/Time: 05/08/23 13:03 Chief Complaint: Questionable leaking and decreased baseline heart rate Narrative: She is a G1 at 38 6/7 weeks by last menstrual. Consistent with a 6 week ultrasound with an EDC of by last menstrual period. She complained of contractions frequent since yesterday. Exam in office fht 115-120. She felt a ? pop no leaking at time of cervical exam. She was sent down for a rupture check and also due to decrease in the baseline heart rate. Amnisure pos on L and D, irregular contraction. course uncomplicated. She has a history depression it is stable on medications she has not had any issues during . She has had hip pain which did improve with adjusting her activities. Labs reviewed GBS negative. Review of Systems Review of Systems: All systems reviewed & are unremarkable except as noted in HPI and below Constitutional: Constitutional: Reports no additional constitutional complaints and Denies headache(s) Eyes: Eyes: Denies spots in vision ENT: Reports system reviewed and no additional complaints, except as documented and Denies headache(s) Cardiovascular: Cardiovascular: Denies chest pain and Denies dyspnea Respiratory: Respiratory: Denies dyspnea Gastrointestinal: Gastrointestinal: Reports no additional gastrointestinal complaints Genitourinary: Genitourinary: Reports amenorrhea Musculoskeletal: Musculoskeletal: Reports no additional musculoskeletal complaints Integumentary/Breasts: Skin/Breast: Denies breast mass and Denies rash Neurologic: Denies headache(s) Psychiatric: Psychiatric: Reports no additional psychiatric complaints PMFSH Past Medical History Medical History Anxiety Asthma History of depression Surgical History Surgical History History of cholecystectomy S/P knee surgery Family History Family History Mother Family history of malignant neoplasm Alcoholism Depression Lung cancer Asthma Grandparent Heart disease Chronic obstructive pulmonary disease Thyroid disorder Lung cancer Grandparent Heart disease Chronic obstructive pulmonary disease Hypertension Social History Social History Smoking status: Former smoker Tobacco type: e-cigarettes/vaping Smoking end date: 07/13/22 Alcohol intake: former Alcohol use details: Not since Substance use: never Substance use type: does not use Lack of Transportation: No Lack of Food: Never True Current Housing: I Have Housing Concerned About Future Housing: No Difficulty Paying Gas/Electric Bills: No Difficulty Paying for Meds: No Currently Unemployed: No Education: Associate Degree Difficulty w/ Childcare or Family Care: No Living arrangements: with family Occupation/Education: occupation Gender identity (if verbalized by the patient): Female Sexual Orientation (if Verbalized by the Patient): Straight or Heterosexual Spiritual care concerns: No Meds Home Medications and Allergies Home Medications Medication Instructions Recorded Confirmed Type albuterol sulfate 90 mcg/actuation 1 puff inhalation Q4H PRN 09/26/22 05/08/23 History aerosol inhaler Shortness Of Breath Or Wheezing duloxetine 60 mg capsule,delayed 60 mg PO DAILY 09/26/22 05/08/23 History release (Cymbalta) pop.stocking,knee,reg,smal #2 ea 11/29/22 04/16/23 Rx ferrous sulfate 325 mg (65 mg 325 mg PO DAILY 05/03/23 05/03/23 History iron) tablet prenat.vits,enrico,jax-boky-asefc 1 tablet DAILY 05/03/23 05/03/23 History Allergies Allergy/AdvReac Type Severity Reaction Status Date / Time morphine Allergy Unknown Anaphylaxis Verified 05/08/23 08:39 Vital Signs Vital Signs - 24 hr 05/08/23
--- NOTE | 2023-05-08 13:05 | PM.OBPNLAB ---
Pain Control Date/time seen: 05/08/23 13:05 Comments: fht 130 cat 1, cervix 1.5/70/-2, irregular contractions, forebag AROM light meconium, continue Pitocin.
[2023-05-08 13:25] LABS: Rapid Plasma Reagin Non-Reactive (NonReactive)
--- NOTE | 2023-05-08 14:04 | WPDANESEPP ---
Anes - Eval Pre Procedure Procedure: labor pain management Date/Time: 05/08/23 14:04 Surgeon: Yung Preop Diagnosis: Pain during labor Pre Op Diagnosis: Leaking Patient Data Age: 27 Gender: F Height: 1.5 m Weight: 73.5 kg Last Vital Signs Pulse 88 05/08/23 14:00 BP 103/74 05/08/23 14:00 O2 Del Method Room Air 05/08/23 11:47 Allergies Allergy/AdvReac Type Severity Reaction Status Date / Time morphine Allergy Unknown Anaphylaxis Verified 05/08/23 08:39 Home Medications Medication Instructions Recorded Confirmed Type albuterol sulfate 90 mcg/actuation 1 puff inhalation Q4H PRN 09/26/22 05/08/23 History aerosol inhaler Shortness Of Breath Or Wheezing duloxetine 60 mg capsule,delayed 60 mg PO DAILY 09/26/22 05/08/23 History release (Cymbalta) pop.stocking,knee,reg,smal #2 ea 11/29/22 04/16/23 Rx ferrous sulfate 325 mg (65 mg 325 mg PO DAILY 05/03/23 05/03/23 History iron) tablet prenat.vits,enrico,tob-dcxl-epgry 1 tablet DAILY 05/03/23 05/03/23 History Laboratory Tests 05/08/23 10:54 WBC 8.4 K/mm3 (4.5-10.0) RBC 3.55 L M/mm3 (4.2-5.4) Hgb 10.3 L g/dL (12.0-15.0) Hct 32.2 L % (37.0-47.0) MCV 90.7 fl (80-100) MCH 29.0 pg (26-34) MCHC 32.0 g/dl (32-36) RDW 16.4 H % (11.5-14.5) Plt Count 187 k/mm3 (150-375) MPV 13.0 H fl (7.4-10.4) Immature Gran % (Auto) 0.8 H % (0-0.5) Neut % (Auto) 79.9 H % (45.5-73.1) Lymph % (Auto) 13.2 L % (18.3-44.2) [place] % (Auto) 5.5 % (2.6-8.5) Eos % (Auto) 0.2 % (0-4.4) Baso % (Auto) 0.4 % (0.2-1.2) Lymph # (Auto) 1.10 K/mm3 (0.9-3.2) [place] # (Auto) 0.5 K/mm3 (0.1-0.6) Eos # (Auto) 0.0 K/mm3 (0-0.3) Baso # (Auto) 0.0 K/mm3 (0.0-0.1) Abs Immat Gran (auto) 0.07 H K/mm3 (0.00-0.031) Absolute Neuts (auto) 6.7 K/mm3 (1.3-6.7) Absolute Nucleated RBC 0.0 K/mm3 (0.0-0.012) Nucleated RBC % 0.0 % (0.0-0.2) Sodium 134 L mmol/L (137-145) Potassium 4.0 mmol/L (3.4-5.0) Chloride 105 mmol/L (98-107) Carbon Dioxide 25 mmol/L (22-30) Anion Gap 4 L mmol/L (8-16) BUN 11 mg/dL (7-17) Creatinine 0.70 mg/dL (0.7-1.0) Estim Creat Clear Calc Not Reportable Estimated GFR > 60 (59 - ) Glucose 86 mg/dL (65-110) Uric Acid 5.4 mg/dL (2.5-7.5) Calcium 8.5 mg/dL (8.4-10.2) Total Bilirubin 0.4 mg/dL (0.2-1.3) AST 28 U/L (14-36) ALT 18 U/L (6-35) Alkaline Phosphatase 213 H U/L (38-126) Total Protein 7.0 g/dL (6.3-8.2) Albumin 3.6 g/dL (3.5-5.1) RPR Non-reactive (NonReactive) Blood Type A Positive Antibody Screen Negative Patient hx anesthesia problems: none Family hx anesthesia problems: none Results Review: All pre-operative results and documents have been reviewed as part of the pre-operative evaluation. [facility] Past Medical History Medical History Anxiety Asthma History of depression Surgical History Surgical History History of cholecystectomy S/P knee surgery Family History Family History Mother Family history of malignant neoplasm Alcoholism Depression Lung cancer Asthma Grandparent Heart disease Chronic obstructive pulmonary disease Thyroid disorder Lung cancer Grandparent Heart disease Chronic obstructive pulmonary disease Hypertension Social History Social History Smoking status: Former smoker Tobacco type: e-cigarettes/vaping Smoking end date: 07/13/22 Alcohol intake: former Alcohol use details: Not since Substance use: never Substance use type: does not use Lack of Transportation: No Lack of Food: Never True
[2023-05-08] MEDS: ACETAMINOPHEN 500 MG TABLET 1000 MG PO (22:43)
[2023-05-08] MEDS: DULoxetine HCL 60 MG CAPSULE.DR PO (23:00)
[2023-05-09] VITALS (81 sets, daily range): BP systolic 84–164; BP diastolic 40–104; PULSE 71–130; RESP 16–18; TEMP 36.6–37.1; O2SAT 91–99
[2023-05-09] MEDS: ceFAZolin 2 GM/D5W 50 ML 2 GM/50 ML BAG IVPB (01:31)
--- NOTE | 2023-05-09 01:33 | PM.OBPNLAB ---
Pain Control Date/time seen: 05/09/23 01:33 Assessment and Plan Comments: tracing with bradycardia episode. This was the second prolonged thomas episode. Cervix was unchanged and swollen. She was recommended for section for intolerance to labor and failure to progress. She has been informed of risk/benefit of section and risk of continuing Pitocin. She agrees to section.
[2023-05-09] MEDS: AZITHROMYCIN 500 MG/NS 250 ML 500 MG/250 ML BAG 250 MG IVPB (01:55)
--- NOTE | 2023-05-09 02:35 | W.PM.PROC2 ---
Procedure Note - Detailed Date of Procedure 05/09/23 Pre-op Diagnosis intolerance to labor Failure to progress Post-op Diagnosis Same Procedure Performed Primary low transverse section Surgeon Solo Barragan MD Anesthesia Epidural Indications intolerance labor Failure to progress Findings Female infant [id number] 8,9 Description of Procedure After informed consent, risks and benefits of the procedure was discussed with the patient. The patient was taken to the operating room where she was placed in the dorsal lithotomy position with leftward tilt. After the prior placed epidural anesthesia was found to be adequate, she was then prepped and draped in the usual sterile fashion. A Pfannenstiel skin incision was made with a scalpel and carried through to the underlying layer of fascia. The fascia was then nicked in the midline, extending bilaterally. The fascia was dissected off the rectus muscles bluntly and sharply, superiorly and inferiorly. The rectus muscles were in the midline, and peritoneum was identified and entered bluntly. The pelvic organs were visualized. The bladder blade was then inserted. The vesicouterine peritoneum was identified and entered sharply with Metzenbaum scissors and extended bilaterally and then the bladder flap was created digitally. The low transverse uterine incision was then made with the scalpel and extended with bilateral index fingers in a crescent-shaped fashion. The head was delivered and the rest of the was delivered. The cord was loosely wrapped around the lower leg. The cord was reduced. The nose and mouth suctioned. The cord was clamped twice and cut. The was then handed off to the awaiting nursery staff. The placenta was then delivered manually. The uterine cavity was sponge curretted. The uterus was then exteriorized. The uterine incision was then closed with 0 vicryl in a running locked fashion. There was moderate uterine atony which did not responded to uterine massage and instructed for methergine 0.2mg IM to be given by anesthesia. A second layer of 0 vicryl was used in an imbricating fashion. Hemostasis was noted. The posterior cul de sac was irrigated. The uterus was then returned to the abdomen. Bilateral gutters were cleared off all clots and debris. The uterine incision was noted to be hemostatic. Interceed placed on uterine incision and vertically on front of uterus. The peritoneum was approximated with 3.0 vicryl. The muscle bellies were inspected and noted to be hemostatic. The subfascial layer was noted to be hemostatic, and the fascia was closed with 0 Vicryl in a running fashion. The subcutaneous layer was then closed with 3-0 Vicryl in a subcutaneous fashion. The skin was closed with Ensorb cynthia. Skin dermabond applied at incision. All instruments, needle, and lap counts were correct x3. The patient was taken to the recovery room in stable condition. Estimated Blood Loss 875 Drains No Packing No Pathology Yes (placenta and cord) Complications No immediate complications Condition Stable Disposition Floor [facility] Billing Surgery - Charge Forward: Surgery Billing
--- NOTE | 2023-05-09 02:57 | PM.OBDSVD ---
DS: Admitting Diagnosis Discharge Date 05/11/23 <Walter Saldivar MD - Last Filed: 05/11/23 12:11> Admitting Diagnosis Spontaneous rupture of membranes. <Solo Barragan MD - Last Filed: 05/31/23 11:35> OB - DS: Summary Hospital Course Hospital Course: She was admitted for rupture of membranes. Had subsequent AROM of forebag with light meconium. Labor course significant for two episodes of prolonged bradycardia. After second episode no change in cervix and cervical swelling noted. She had subsequent uncomplicated primary section for intolerance to labor and failure to progress. She did well . She was discharged home on day 2. On postop day 2 she was ambulating well tolerated regular food and had adequate pain control. She was sent home with discharge precautions. <Solo Barragan MD - Last Filed: 05/31/23 11:35> OB Procedures : Ultrasound <Solo Barragan MD - Last Filed: 05/31/23 11:35> OB Procedures Intrapartum: Spontaneous Vag Delivery <Solo Barragan MD - Last Filed: 05/31/23 11:35> <Walter Saldivar MD - Last Filed: 05/11/23 12:11> OB Procedures: : None <Solo Barragan MD - Last Filed: 05/31/23 11:35> Transfusion <Walter Saldivar MD - Last Filed: 05/11/23 12:11> Peripartum Data Infant Delivery Method: Section <Walter Saldivar MD - Last Filed: 05/11/23 12:11> Procedures: Procedures Operation Date: 05/09/23 01:15 Actual Procedure Side Surgeon p Section Solo Barragan MD <Solo Barragan MD - Last Filed: 05/31/23 11:35> complications: none <Solo Barragan MD - Last Filed: 05/31/23 11:35> transfusion <Walter Saldivar MD - Last Filed: 05/11/23 12:11> Status at Discharge Functional status at discharge: independent ambulation <Solo Barragan MD - Last Filed: 05/31/23 11:35> Overall status at discharge: patient is progressing back to baseline <Walter Saldivar MD - Last Filed: 05/11/23 12:11> Time Spent with Patient Time attestation: Total time spent providing and/or coordinating discharge services: <Solo Barragan MD - Last Filed: 05/31/23 11:35> Time spent: Less than 30 minutes <Walter Saldivar MD - Last Filed: 05/11/23 12:11> Exam Const: General: cooperative <Solo Barragan MD - Last Filed: 05/31/23 11:35> Orientation/consciousness: oriented to person, oriented to place and oriented to time <Solo Barragan MD - Last Filed: 05/31/23 11:35> HENMT: Face/Nose/Sinus: Normal external nose present <Solo Barragan MD - Last Filed: 05/31/23 11:35> Eyes: General: appearance normal, both eyes and all related structures <Solo Barragan MD - Last Filed: 05/31/23 11:35> Resp: Effort & Inspection: normal respiratory effort <Solo Barragan MD - Last Filed: 05/31/23 11:35> GI: Inspection: normal to inspection <Solo Barragan MD - Last Filed: 05/31/23 11:35> Skin: General skin exam: normal color <Solo Barragan MD - Last Filed: 05/31/23 11:35> Neuro: General: oriented to person, oriented to place and oriented to time <Solo Barragan MD - Last Filed: 05/31/23 11:35> Extrem: General: normal to inspection and no calf tenderness <Solo Barragan MD - Last Filed: 05/31/23 11:35> Psych: Appearance: grossly normal <Solo Barragan MD - Last Filed: 05/31/23 11:35> Mental Status: mental status grossly normal <Solo Barragan MD - Last Filed: 05/31/23 11:35> DS: Data Data Completed and Pending Pending studies at discharge: Pending at discharge 05/09/23 01:51 Surgical [PTH] Routine <Solo Barragan MD - Last Filed: 05/31/23 11:35> Labs on day of discharge: Labs from last 24 hours 05/08/23 10:54 WBC 8.4 RBC 3.55 L Hgb 10.3 L Hct 32.2 L MCV 90.7 MCH 29.0 MCHC 32.0 RDW 16.4 H Plt Count 187 MP
[2023-05-09] MEDS: fentaNYL CITRATE INJ (*CRX) 100 MCG/2 ML VIAL 50 MCG IV PUSH (03:40)
[2023-05-09] MEDS: HYDROmorphone HCL INJ (*CRX) 1 MG/ML SYR 0.5 MG IV PUSH ×2 (04:49→04:59)
[2023-05-09] MEDS: DEXTROSE 5%/0.45% SOD CHL 1,000 ML 125 ML IV CONT (07:30)
[2023-05-09] MEDS: MULTIVIT/MIN/PREN/FOL AC/IRON TABLET 1 TAB PO (09:30)
[2023-05-09] MEDS: HYDROcodone/acetaminophen (*CRX) 10-325 MG TABLET 1 TAB PO ×4 (09:30→21:35)
[2023-05-09] MEDS: POLYSACCHARIDE IRON COMPLEX 150 MG CAPSULE PO ×2 (09:30→16:45)
[2023-05-09] MEDS: DOCUSATE SODIUM 100 MG CAPSULE PO ×2 (09:30→16:45)
[2023-05-09] MEDS: KETOROLAC 30 MG/ML VIAL (*BKC) IV PUSH ×2 (09:30→16:45)
[2023-05-09] MEDS: ceFAZolin 1 GM/NS 50 ML 1 GM/50 ML BAG IVPB ×2 (09:30→17:00)
--- NOTE | 2023-05-09 12:35 | PC.NURSE ---
Addendum entered by Kassandra Muñoz RN 05/09/23 12:37: RN name written on the communication board and pt encouraged to call out later for pump assessment for flange fit. Original Note: 1000 -1005 Mother declines pumping at this time related to infant will be transported soon and the team is on their way to the room. Breast pump provided by Primary RN due to separation with infant. Instructions given on cleaning, care, usage, that there should be no pain, pumping schedule for milk production, collection, and storage of human milk. Patient was encouraged to pump for comfort and nipple stretching/stimulation for adequate milk production every 3 hours (8 times in 24 hours) 1-2 times at night and to call when she is ready to initiated pumping. Mother voiced understanding of the education shared along with mom and baby guide for additional resource information. Reported to the primary RN.
[2023-05-09] MEDS: SIMETHICONE 80 MG TAB.CHEW PO ×2 (12:50→16:45)
[2023-05-09] MEDS: DULoxetine HCL 60 MG CAPSULE.DR PO (21:35)
[2023-05-10] MEDS: ceFAZolin 1 GM/NS 50 ML 1 GM/50 ML BAG IVPB (01:04)
[2023-05-10 01:15] VITALS: BP 105/66; PULSE 104; RESP 16; TEMP 36.4; O2SAT 97
[2023-05-10 05:55] LABS: Basophils Absolute Auto 0.1 K/mm3 (0.0-0.1); Basophils Percent Auto 0.4 % (0.2-1.2); Eosinophils Percent Auto 0.2 % (0-4.4); Hematocrit 24.4 % (37.0-47.0); Hemoglobin 7.8 g/dL (12.0-15.0); Immature Granulocyte Absolute 0.15 K/mm3 (0.00-0.031); Lymphocytes Absolute Auto 1.02 K/mm3 (0.9-3.2); Lymphocytes Percent Auto 6.7 % (18.3-44.2); Mean Corpuscular Hemoglobin 29.4 pg (26-34); Mean Corpuscular Volume 92.1 fl (80-100); Mean Platelet Volume 12.2 fl (7.4-10.4); Monocytes Percent Auto 6.5 % (2.6-8.5); Neutrophils Percent Auto 85.2 % (45.5-73.1); Platelet Count Result 176 k/mm3 (150-375); Red Blood Count 2.65 M/mm3 (4.2-5.4); Red Cell Distribution Width 17.2 % (11.5-14.5); White Blood Count 15.3 K/mm3 (4.5-10.0)
[2023-05-10] MEDS: IBUPROFEN 600 MG TABLET PO ×3 (07:36→22:15)
[2023-05-10] MEDS: HYDROcodone/acetaminophen (*CRX) 5-325 MG TABLET 1 TAB PO ×3 (07:36→22:15)
[2023-05-10] MEDS: DOCUSATE SODIUM 100 MG CAPSULE PO ×2 (07:36→15:45)
[2023-05-10] MEDS: POLYSACCHARIDE IRON COMPLEX 150 MG CAPSULE PO ×2 (07:36→15:45)
[2023-05-10] MEDS: MULTIVIT/MIN/PREN/FOL AC/IRON TABLET 1 TAB PO (07:36)
--- NOTE | 2023-05-10 07:44 | WPDANLDPN2 ---
Anes-Prog Note L&D Date/Time: 05/10/23 07:44 Comfortable throughout: section Epidural/Spinal procedure site: clean & non-tender Neuro status: Neuro function grossly intact. Cardiovascular status: normal Respiratory status: normal Airway patency: baseline Mental status: baseline Post-Op hydration status: normal Vital Signs: Last Vital Signs Temp 36.4 C 05/10/23 01:15 Pulse 104 H 05/10/23 01:15 Resp 16 05/10/23 01:15 BP 105/66 05/10/23 01:15 Pulse Ox 97 05/10/23 01:15 O2 Del Method Room Air 05/09/23 04:45 Pain score (VAS): Patient asleep, no nonverbal signs of pain present at this time. I/O: Intake & Output 05/09/23 05/09/23 05/10/23 15:59 23:59 07:59 Intake Total 550 1050 50 Output Total 475 200 Balance 75 850 50 Post-procedural complaints: none Patient feedback: Patient satisfied with anesthetic care.
--- NOTE | 2023-05-10 07:45 | WPDANLDNPN2 ---
Anes-Prog Note L&D-Neuraxial Date/Time: 05/10/23 07:45 Neuraxial medications: epidural PF morphine (Epidural fentanyl given, patient has allergy to morphine ) Opiod-related complaints: none Patient feedback: Patient satisfied with post-operative pain management.
[2023-05-10 08:55] VITALS: BP 132/88; PULSE 97; RESP 16; TEMP 36.9; O2SAT 95
[2023-05-10] MEDS: HYDROcodone/acetaminophen (*CRX) 10-325 MG TABLET 1 TAB PO (10:25)
--- NOTE | 2023-05-10 10:30 | PC.NURSE ---
Patient out on therapeutic pass to see her baby @ [facility], her grandmother has driven her and she is expected back by 1430.
--- NOTE | 2023-05-10 13:19 | PM.OBPNVD ---
OB - PN: Subj Subjective Date/time seen: 05/10/23 13:19 Patient comments: no complaints, pain well controlled, tolerating diet and flatus present Narrative: Attempted to see patient over lunch. Patient is out of hospital on a passed to the NICU. Per RN, patient had been doing well overnight. RN denied any excessive bleeding or pain issues. OB - PN: Obj Data Labs 05/10/23 04:17 05/08/23 10:54 Labs: Laboratory Results - last 24 hr 05/10/23 04:17 WBC 15.3 H RBC 2.65 L Hgb 7.8 L Hct 24.4 L MCV 92.1 MCH 29.4 MCHC 32.0 RDW 17.2 H Plt Count 176 MPV 12.2 H Immature Gran % (Auto) 1.0 H Neut % (Auto) 85.2 H Lymph % (Auto) 6.7 L [place] % (Auto) 6.5 Eos % (Auto) 0.2 Baso % (Auto) 0.4 Lymph # (Auto) 1.02 [place] # (Auto) 1.0 H Eos # (Auto) 0.0 Baso # (Auto) 0.1 Abs Immat Gran (auto) 0.15 H Absolute Neuts (auto) 13.0 H Absolute Nucleated RBC 0.0 Nucleated RBC % 0.0 OB - PN A/P Plan day: 1 Plan: routine care Comments: patient doing well H/H 7.8/24. asymptomatic. will repeat CBC in AM. afebrile, VSS per RN, no pain or bleeding concerns Patient has been ambulating and voiding spontaneously continue routine post op care Time Spent With Patient Time: Total time spent is greater than 50% in coordination of care (as documented) at patient's floor/unit and/or counseling patient: Time with patient: less than 15 minutes Review of Systems Constitutional: Constitutional: Reports no additional constitutional complaints Cardiovascular: Cardiovascular: Reports no additional cardiovascular complaints Respiratory: Respiratory: Reports no additional respiratory complaints Gastrointestinal: Gastrointestinal: Reports no additional gastrointestinal complaints Genitourinary: Genitourinary: Reports no additional female genitourinary complaints Exam Narrative: Physical exam unable to be performed as patient was out of hospital on a pass to NICU
--- NOTE | 2023-05-10 14:15 | PC.NURSE ---
Patient called and said she was on her way back to [place] but was stuck in traffic on [address] from [facility].
--- NOTE | 2023-05-10 14:45 | PC.NURSE ---
Patient has returned from [facility], vitals taken.
[2023-05-10 14:50] VITALS: BP 120/69; PULSE 91; RESP 16; TEMP 36.8; O2SAT 98
[2023-05-10 19:25] VITALS: BP 116/73; PULSE 95; RESP 16; TEMP 36.7; O2SAT 96
[2023-05-10] MEDS: DULoxetine HCL 60 MG CAPSULE.DR PO (22:15)
[2023-05-11] VITALS (10 sets, daily range): BP systolic 125–145; BP diastolic 84–95; PULSE 68–103; RESP 14–18; TEMP 36.7–37.1; O2SAT 97–100
[2023-05-11] MEDS: HYDROcodone/acetaminophen (*CRX) 5-325 MG TABLET 1 TAB PO ×2 (04:35→10:50)
[2023-05-11] MEDS: IBUPROFEN 600 MG TABLET PO ×3 (04:35→15:30)
[2023-05-11 05:42] LABS: Basophils Percent Auto 0.3 % (0.2-1.2); Eosinophils Absolute Auto 0.1 K/mm3 (0-0.3); Eosinophils Percent Auto 0.8 % (0-4.4); Hematocrit 23.5 % (37.0-47.0); Hemoglobin 7.7 g/dL (12.0-15.0); Immature Granulocyte Absolute 0.27 K/mm3 (0.00-0.031); Lymphocytes Absolute Auto 1.92 K/mm3 (0.9-3.2); Lymphocytes Percent Auto 14.4 % (18.3-44.2); Mean Corpuscular HGB Conc 32.8 g/dl (32-36); Mean Corpuscular Hemoglobin 30.1 pg (26-34); Mean Corpuscular Volume 91.8 fl (80-100); Mean Platelet Volume 11.5 fl (7.4-10.4); Monocytes Absolute Auto 0.8 K/mm3 (0.1-0.6); Neutrophils Absolute Auto 10.2 K/mm3 (1.3-6.7); Neutrophils Percent Auto 76.5 % (45.5-73.1); Platelet Count Result 246 k/mm3 (150-375); Red Blood Count 2.56 M/mm3 (4.2-5.4); Red Cell Distribution Width 17.8 % (11.5-14.5); White Blood Count 13.3 K/mm3 (4.5-10.0)
--- NOTE | 2023-05-11 07:43 | P.PNOB_ITS ---
OB - PN: Subj Subjective Date/time seen: 05/11/23 07:43 Patient comments: no complaints, pain well controlled, tolerating diet and flatus present Narrative: overall doing well. Patient was resting comfortably in bed this morning. Patient does report fatigue and weakness. Patient denies any excessive bleeding but states she is still having some. Patient denies any incisional pain. She is tolerating diet. She is voiding spontaneously OB - PN: Obj Data Labs 05/11/23 04:33 05/08/23 10:54 Labs: Laboratory Results - last 24 hr 05/11/23 04:33 WBC 13.3 H RBC 2.56 L Hgb 7.7 L Hct 23.5 L MCV 91.8 MCH 30.1 MCHC 32.8 RDW 17.8 H Plt Count 246 MPV 11.5 H Immature Gran % (Auto) 2.0 H Neut % (Auto) 76.5 H Lymph % (Auto) 14.4 L [place] % (Auto) 6.0 Eos % (Auto) 0.8 Baso % (Auto) 0.3 Lymph # (Auto) 1.92 [place] # (Auto) 0.8 H Eos # (Auto) 0.1 Baso # (Auto) 0.0 Abs Immat Gran (auto) 0.27 H Absolute Neuts (auto) 10.2 H Absolute Nucleated RBC 0.0 Nucleated RBC % 0.0 OB - PN A/P Plan day: 2 Plan: routine care Comments: patient doing well H/H stable, hemoglobin at 7.7. Patient asymptomatic this morning. Patient rep orts weakness and fatigue. Discussed blood transfusion for symptomatic anemia. Recommended transfusion as patient will be very active visiting her child in the NICU in the next few days. Risks, benefits, alternatives discussed. Patient consented for maternal blood transfusion. Will transfuse 2 units pRBC afebrile, VSS incision C/D/I soler removed, voiding spontaneously continue routine post op care Time Spent With Patient Time: Total time spent is greater than 50% in coordination of care (as documented) at patient's floor/unit and/or counseling patient: Time with patient: less than 15 minutes Review of Systems Constitutional: Constitutional: Reports no additional constitutional com plaints Cardiovascular: Cardiovascular: Reports no additional cardiovascular complaints Respiratory: Respiratory: Reports no additional respiratory complaints Gastrointestinal: Gastrointestinal: Reports no additional gastrointestinal complaints Genitourinary: Genitourinary: Reports no additional female genitourinary complaints Exam Const: General: cooperative, comfortable and no acute distress Resp: Effort & Inspection: normal respiratory effort Auscultation: clear to auscultation bilaterally Cardio: Rate: regular rate GI: GI Palp: Yes Soft to palpation, Yes Tenderness to palpation present (GI) (around incision ) and No Guarding due to palpation present (GI) Auscultation: normal bowel sounds Other: incision C/D/I, covered with Dermabond Psych: Appearance: grossly normal Mental Status: mental status grossly normal Affect: normal affect
--- NOTE | 2023-05-11 08:27 | PC.NURSE ---
0830 - Purposefully rounded to discussed milk production, mother's health, questions or concerns, and inquired about the health of her infant. Mother is pumping consistently pumping every 3 hours without pain. Mother was encouraged to call for an assessment for correct placement, flange size, to pump for comfort and nipple stretching/stimulation for adequate milk production every 3 hours. Mother voiced understanding of the education shared along with mom and baby guide for additional resource information. Reported to the primary RN.
[2023-05-11] MEDS: SODIUM CHLORIDE 0.9% IV 250 ML 30 ML IV CONT (09:00)
[2023-05-11] MEDS: TUBING, BLOOD PLUM PUMP TUBING 1 EACH XX ×2 (09:00→12:30)
[2023-05-11] MEDS: MULTIVIT/MIN/PREN/FOL AC/IRON TABLET 1 TAB PO (10:50)
[2023-05-11] MEDS: DOCUSATE SODIUM 100 MG CAPSULE PO (10:50)
[2023-05-11] MEDS: POLYSACCHARIDE IRON COMPLEX 150 MG CAPSULE PO (10:50)
[2023-05-11] MEDS: SIMETHICONE 80 MG TAB.CHEW PO (15:30)
[2023-05-11] MEDS: HYDROcodone/acetaminophen (*CRX) 10-325 MG TABLET 1 TAB PO (15:30)
[2023-05-11] MEDS: MEASLES,MUMPS,RUBELLA VACCINE 0.5 ML VIAL SUB-Q (16:45)
[2023-05-14 10:51] VITALS: BP 134/94; PULSE 86; RESP 18; TEMP 36.9; O2SAT 98
--- NOTE | 2023-05-16 10:31 | P.PNOB_ITS ---
OB - Triage/Final Diagnosis Visit Information Comments/Additional reasons for admission: I have assessed the risk for this patient, Rula Issa, and determined that she would benefit from observation care. Evaluation Laboratory results: Laboratory Tests 05/08/23 05/10/23 05/11/23 10:54 04:17 04:33 WBC 8.4 15.3 H 13.3 H RBC 3.55 L 2.65 L 2.56 L Hgb 10.3 L 7.8 L 7.7 L Hct 32.2 L 24.4 L 23.5 L MCV 90.7 92.1 91.8 MCH 29.0 29.4 30.1 MCHC 32.0 32.0 32.8 RDW 16.4 H 17.2 H 17.8 H Plt Count 187 176 246 MPV 13.0 H 12.2 H 11.5 H Immature Gran % (Auto) 0.8 H 1.0 H 2.0 H Neut % (Auto) 79.9 H 85.2 H 76.5 H Lymph % (Auto) 13.2 L 6.7 L 14.4 L [place] % (Auto) 5.5 6.5 6.0 Eos % (Auto) 0.2 0.2 0.8 Baso % (Auto) 0.4 0.4 0.3 Lymph # (Auto) 1.10 1.02 1.92 [place] # (Auto) 0.5 1.0 H 0.8 H Eos # (Auto) 0.0 0.0 0.1 Baso # (Auto) 0.0 0.1 0.0 Abs Immat Gran (auto) 0.07 H 0.15 H 0.27 H Absolute Neuts (auto) 6.7 13.0 H 10.2 H Absolute Nucleated RBC 0.0 0.0 0.0 Nucleated RBC % 0.0 0.0 0.0 Sodium 134 L Potassium 4.0 Chloride 105 Carbon Dioxide 25 Anion Gap 4 L BUN 11 Creatinine 0.70 Estim Creat Clear Calc Not Reportable Estimated GFR > 60 Glucose 86 Uric Acid 5.4 Calcium 8.5 Total Bilirubin 0.4 AST 28 ALT 18 Alkaline Phosphatase 213 H Total Protein 7.0 Albumin 3.6 RPR Non-reactive Blood Type A Positive Antibody Screen Negative Crossmatch See Detail Final Diagnosis (1) Spontaneous rupture of membranes: Status: Acute
--- NOTE | 2023-05-16 21:37 | P.PNOB_ITS ---
OB - Triage/Final Diagnosis Visit Information Comments/Additional reasons for admission: I have assessed the risk for this patient, Rula Issa, and determined that she would benefit from observation care. Evaluation Laboratory results: Laboratory Tests 05/08/23 05/10/23 05/11/23 10:54 04:17 04:33 WBC 8.4 15.3 H 13.3 H RBC 3.55 L 2.65 L 2.56 L Hgb 10.3 L 7.8 L 7.7 L Hct 32.2 L 24.4 L 23.5 L MCV 90.7 92.1 91.8 MCH 29.0 29.4 30.1 MCHC 32.0 32.0 32.8 RDW 16.4 H 17.2 H 17.8 H Plt Count 187 176 246 MPV 13.0 H 12.2 H 11.5 H Immature Gran % (Auto) 0.8 H 1.0 H 2.0 H Neut % (Auto) 79.9 H 85.2 H 76.5 H Lymph % (Auto) 13.2 L 6.7 L 14.4 L [place] % (Auto) 5.5 6.5 6.0 Eos % (Auto) 0.2 0.2 0.8 Baso % (Auto) 0.4 0.4 0.3 Lymph # (Auto) 1.10 1.02 1.92 [place] # (Auto) 0.5 1.0 H 0.8 H Eos # (Auto) 0.0 0.0 0.1 Baso # (Auto) 0.0 0.1 0.0 Abs Immat Gran (auto) 0.07 H 0.15 H 0.27 H Absolute Neuts (auto) 6.7 13.0 H 10.2 H Absolute Nucleated RBC 0.0 0.0 0.0 Nucleated RBC % 0.0 0.0 0.0 Sodium 134 L Potassium 4.0 Chloride 105 Carbon Dioxide 25 Anion Gap 4 L BUN 11 Creatinine 0.70 Estim Creat Clear Calc Not Reportable Estimated GFR > 60 Glucose 86 Uric Acid 5.4 Calcium 8.5 Total Bilirubin 0.4 AST 28 ALT 18 Alkaline Phosphatase 213 H Total Protein 7.0 Albumin 3.6 RPR Non-reactive Blood Type A Positive Antibody Screen Negative Crossmatch See Detail
== END 2023-05-11 17:05 | disposition home or self-care (01) | DRG 788 ==
LOC: ANHOB2 05-11 13:03 → ANHLDR 05-14 09:50 → ANHOB2 05-14 09:50
PROVIDERS: Admitting Provider Obstetrics & Gynecology; PCP Family Medicine Sports Medicine; Visit Provider Student in an Organized Health Care Education/Training Program
PROC: 10D00Z1 Extraction of Products of Conception, Low, Open Approach (ICD-10-PCS; CPT 59514; principal; 2023-05-09 01:15)
DX: O42.02 Full-term premature rupture of membranes, onset of labor within 24 hours of rupture (principal); Z37.0 Single live birth; Z3A.39 39 weeks gestation of pregnancy; O69.82X0 Labor and delivery complicated by other cord entanglement, without compression, not applicable or unspecified; O77.0 Labor and delivery complicated by meconium in amniotic fluid; O36.8330 Maternal care for abnormalities of the fetal heart rate or rhythm, third trimester, not applicable or unspecified; O66.40 Failed trial of labor, unspecified; O32.4XX0 Maternal care for high head at term, not applicable or unspecified
CPT/HCPCS: 36415; 36430; 80053; 84112; 84550; 85025; 86592; 86850; 86900; 86901; 86923; 88307; 90710; A9270; J0456; J0690; J1100; J1170; J1885; J2210; J2405; J2590; J2795; J3010; J7050; J7120; P9016